=== PATIENT | female | born 2000 | race Hispanic/Latino ===

== ENCOUNTER 2021-01-20 22:12 | Inpatient (IN) | payer OTHER ==
[2021-01-20 22:31] VITALS: BMI 29.7
[2021-01-20] MEDS ORDERED: Misoprostol 200 MCG TAB PR PRN (22:52)
[2021-01-20] MEDS ORDERED: Ondansetron PF 4 MG/2 ML Vial IVP PRN (22:52)
[2021-01-20] MEDS ORDERED: Butorphanol Tartrate 1 MG/ML VIAL SLOW IVP PRN (22:52)
[2021-01-20] MEDS ORDERED: Lidocaine 1% (PF) 30 ML VIAL SC PRN (22:52)
[2021-01-20] MEDS ORDERED: hydrALAZINE 20 MG/ML VIAL SLOW IVP PRN (22:52)
[2021-01-20] MEDS ORDERED: HYDROcodone/Acetaminophen 5/325 mg Tablet PO PRN (22:52)
[2021-01-20] MEDS ORDERED: Methylergonovine 0.2 MG/ML VIAL IM PRN (22:52)
[2021-01-20] MEDS ORDERED: Ibuprofen 800 MG TAB PO PRN (22:52)
[2021-01-20] MEDS ORDERED: Lactated Ringer's 1,000 ML IV SCH (23:00)
[2021-01-20] MEDS ORDERED: NS w/ Oxytocin 30 units 500 ML IV PRN (23:12)
[2021-01-20] MEDS ORDERED: Fentanyl 4 mcg/Bup 0.1% Cadd 100 ML ONE (23:18)
[2021-01-20 23:26] LABS: Hemoglobin 12.3 g/dL (12.0-15.5); Mean Corpuscular HGB CONC 33.3 g/dL (32.0-36.0); Mean Corpuscular Hemoglobin 30.4 pg (27.0-33.0); Mean Corpuscular Volume 91.3 fl (81.6-98.3); Mean Platelet Volume 11.9 fl (7.4-10.4); Platelet Count 247 10x3/uL (150-450); RBC Distribution Width 14.7 % (11.5-14.5); Red Blood Cell (RBC) Count 4.04 10x6/uL (3.90-5.03); White Blood Cell (WBC) Count 16.9 10x3/uL (3.5-10.5)
[2021-01-21] LABS: Hep B Surf Ag Non-Reactive S/CO (NonReactive); Syphilis Antibody Nonreactive (Nonreactive); Syphilis Antibody Index 0.03 S/CO (<1.00 Non-Reactive)
[2021-01-21] MEDS ORDERED: Eucerin (Mineral Oil/Petrolatum,White) 30 gm Jar TOP PRN (00:10)
[2021-01-21] MEDS ORDERED: diphenhydrAMINE 50 MG/ML VIAL IVP PRN (00:10)
[2021-01-21] MEDS ORDERED: Promethazine HCl 25 MG/ML VIAL IM PRN ×2 (00:10→11:03)
[2021-01-21] MEDS ORDERED: Lactated Ringer's 500 ML IV PRN (00:10)
[2021-01-21] MEDS ORDERED: Naloxone HCl 0.4 mg/ml Vial IVP PRN ×2 (00:10)
[2021-01-21] MEDS ORDERED: Ondansetron PF 4 MG/2 ML Vial IVP PRN ×2 (00:10→11:03)
[2021-01-21] MEDS ORDERED: Acetaminophen 325 MG TAB PO PRN (00:10)
[2021-01-21] MEDS ORDERED: ePHEDrine 50 MG/ML VIAL SLOW IVP PRN (00:10)
[2021-01-21 00:12] LABS: HBSAg Index 0.21 S/CO (0-0.99)
[2021-01-21] MEDS ORDERED: Fentanyl 4 mcg/Bupivacaine 0.1% Cassette 100 ML EPIDURAL SCH (00:15)
[2021-01-21] MEDS ORDERED: Communication Order-Pharmacy FS SCH (00:15)
[2021-01-21] MEDS: Lactated Ringer's 1,000 ML IV SCH ×2 (03:07→12:42)
[2021-01-21] MEDS ORDERED: Fentanyl 4 mcg/Bup 0.1% Cadd 100 ML ONE (07:15)
[2021-01-21] MEDS: NS w/ Oxytocin 30 units 500 ML IVPB SCH ×2 (09:45→10:45)
[2021-01-21] MEDS ORDERED: Lanolin Ointment 7 GM TUBE TOP PRN (11:03)
[2021-01-21] MEDS ORDERED: Benzocaine-Menthol 82.5 ML CAN TOP PRN (11:03)
[2021-01-21] MEDS ORDERED: Preparation H Ointment 28 GM TUBE PR PRN (11:03)
[2021-01-21] MEDS ORDERED: hydrALAZINE 20 MG/ML VIAL SLOW IVP PRN (11:03)
[2021-01-21] MEDS ORDERED: HYDROcodone/Acetaminophen 5/325 mg Tablet PO PRN ×2 (11:03)
[2021-01-21] MEDS ORDERED: Bisacodyl 10 MG SUPP PR PRN (11:03)
[2021-01-21] MEDS ORDERED: Adacel (T-DAP) 0.5 ML SYRINGE IM ONE (11:03)
[2021-01-21] MEDS ORDERED: Milk Of Magnesia 30 ML UDCUP PO PRN (11:03)
[2021-01-21] MEDS ORDERED: diphenhydrAMINE 25 MG CAP PO PRN (11:03)
[2021-01-21] MEDS ORDERED: Boostrix 0.5 ML (Tdap) VIAL IM ONE (11:45)
[2021-01-21] MEDS: Ibuprofen 800 MG TAB PO SCH ×2 (13:32→21:41)
[2021-01-21 14:36] LABS: SARS-CoV-2 PCR by NAA Not Detected (NotDetected)
[2021-01-21] MEDS: Ferrous Sulfate 325 MG TAB PO SCH (14:43)
[2021-01-21] MEDS: Docusate Calcium (SURFAK) 240 MG CAP PO SCH (21:41)
[2021-01-22] MEDS: Ibuprofen 800 MG TAB PO SCH ×3 (05:08→21:20)
[2021-01-22] MEDS: Ferrous Sulfate 325 MG TAB PO SCH ×2 (07:37→16:46)
[2021-01-22] MEDS: Docusate Calcium (SURFAK) 240 MG CAP PO SCH ×2 (08:57→21:21)
[2021-01-22] MEDS: Prenatal Vitamin 1 TAB PO SCH (08:57)
[2021-01-23] MEDS: Ibuprofen 800 MG TAB PO SCH (06:02)
[2021-01-23] MEDS: Ferrous Sulfate 325 MG TAB PO SCH (07:50)
[2021-01-23 08:07] VITALS: BP 132/75; TEMP 98.5
[2021-01-23] MEDS: Docusate Calcium (SURFAK) 240 MG CAP PO SCH (09:46)
[2021-01-23] MEDS: Prenatal Vitamin 1 TAB PO SCH (09:46)
== END 2021-01-23 11:50 | disposition home or self-care (01) | DRG 807 ==
LOC: CSHLD/OP 22:12 → CSHLD 23:49 → CSHPP 01-21 12:27
PROVIDERS: ADMIT Family Medicine; ATTEND Family Medicine
PROC: 10E0XZZ Delivery of Products of Conception, External Approach (ICD-10-PCS; principal; 2021-01-21)
PROC: 0W8NXZZ Division of Female Perineum, External Approach (ICD-10-PCS; 2021-01-21)
DX: O80 Encounter for full-term uncomplicated delivery (principal); Z37.0 Single live birth; Z3A.39 39 weeks gestation of pregnancy; Z20.822 Contact with and (suspected) exposure to COVID-19
CPT/HCPCS: 36415; 51702; 85027; 86780; 86850; 86900; 86901; 87340; 87635; 99285; J2590; U0003; U0005